=== PATIENT | male | born 1970 | race Caucasian/White ===

== ENCOUNTER 2020-06-16 02:49 | Inpatient (IN) | payer MEDICARE, OTHER ==
[~2020-06-16] VITALS: Ht 177.8 cm; Wt 149.7 kg
[2020-06-16 03:19] LABS: RED BLOOD COUNT 4.66 M/UL (4.20-5.50); WHITE BLOOD COUNT 18.7 K/UL (4.5-11.0)
[2020-06-16 03:40] LABS: BUN/CREATININE RATIO 18 (0-10)
[2020-06-16] MEDS ORDERED: COREG 3.125M3.125 MG PO (21:28)
[2020-06-16] MEDS ORDERED: K-TAB ER20 MEQ PO (21:29)
[2020-06-16] MEDS ORDERED: NITROGLYCERIN0.4 MG SL (21:30)
[2020-06-16] MEDS ORDERED: ASPIRIN 325MG325 MG PO (21:30)
[2020-06-16 22:36] LABS: HEMOGLOBIN 13.9 gm/dl (14.0-17.5); RED BLOOD COUNT 4.27 M/UL (4.20-5.50); WHITE BLOOD COUNT 15.9 K/UL (4.5-11.0)
[2020-06-16 22:52] LABS: BORDETELLA PARAPERTUSSIS Not Detected (Not Detectd); BORDETELLA PERTUSSIS Not Detected (Not Detectd); CHLAMYDIA PNEUMONIAE Not Detected (Not Detectd); CORONAVIRUS HKU1 Not Detected (Not Detectd); CORONAVIRUS NL63 Not Detected (Not Detectd); CORONAVIRUS OC43 Not Detected (Not Detectd); CORONOAVIRUS 229E Not Detected (Not Detectd); HUMAN METAPNEUMOVIRUS Not Detected (Not Detectd); HUMAN RHINOVIRUS/ENTEROVIRUS Not Detected (Not Detectd); INFLUENZA A Not Detected (Not Detectd); INFLUENZA B Not Detected (Not Detectd); MYCOPLASMA PNEUMONIAE Not Detected (Not Detectd); PARAINFLUENZA VIRUS 1 Not Detected (Not Detectd); PARAINFLUENZA VIRUS 2 Not Detected (Not Detectd); PARAINFLUENZA VIRUS 3 Not Detected (Not Detectd); PARAINFLUENZA VIRUS 4 Not Detected (Not Detectd); RESPIRATORY SYNCYTIAL VIRUS Not Detected (Not Detectd)
[2020-06-16 23:03] LABS: BUN/CREATININE RATIO 33 (0-10)
[2020-06-17 00:07] LABS: SARS-CoV-2 NOT DETECTED (Not Detectd)
--- NOTE | 2020-06-17 04:00 | NUR ---
ORAL CARE OFFERED. PT REFUSED INSIDE OF MOUTH TO BE WASHED OUT. HE ONLY WANTS WATER. ALSO OFFERED TO CLEAN LIPS AND ATTEMPTED.
[2020-06-17 05:32] LABS: ACINETOBACTER BAUMANNII Not Detected (Negative); CANDIDA ALBICANS Not Detected (Negative); CANDIDA KRUSEI Not Detected (Negative); CANDIDA TROPICALIS Not Detected (Negative); ENTEROCOCCUS Not Detected (Negative); ESCHERICHIA COLI Not Detected (Negative); HAEMOPHILUS INFLUENZAE Not Detected (Negative); KLEBSIELLA OXYTOCA Not Detected (Negative); KLEBSIELLA PNEUMONIAE Not Detected (Negative); KPC-CARBAPENEM-RESISTANCE GENE Not Detected (Negative); PROTEUS Not Detected (Negative); PSEUDOMONAS AERUGINOSA Not Detected (Negative); SERRATIA MARCESANS Not Detected (Negative); STAPHYLOCOCCUS AUREUS Not Detected (Negative); STREP AGALACTIAE (GROUP B) Not Detected (Negative); STREP PYOGENES (GROUP A) Not Detected (Negative); STREPTOCOCCUS Not Detected (Negative); mecA (METHICILLIN RESIST GENE Not Detected (Negative); vanA/B (VANCOMYCIN RESIST GENE Not Detected (Negative)
[2020-06-17 06:41] LABS: STAPHYLOCOCCUS DETECTED (Negative)
[2020-06-17] MEDS ORDERED: HYDROCODONE-AC1 EACH PO (14:03)
[2020-06-17] MEDS ORDERED: SENNA S TABLET1 EACH PO (14:03)
[2020-06-17] MEDS ORDERED: NICOTINE PATCH1 EAC1 TD (14:03)
[2020-06-17] MEDS ORDERED: LIPITOR40 MG PO (14:04)
[2020-06-17] MEDS ORDERED: GLUCOPHAGE500 MG PO (21:21)
[2020-06-17] MEDS ORDERED: NEURONTIN600 MG PO (21:28)
[2020-06-17] MEDS ORDERED: BUMETANIDE1 MG PO (21:29)
[2020-06-17] MEDS ORDERED: IPRAT-ALBUT 0.5-3 ML INH (21:32)
[2020-06-17] MEDS ORDERED: VENTOLIN HFA 66.7 GM INH (21:32)
== END 2020-06-18 09:58 | disposition short-term general hospital (02) | DRG 306 ==
LOC: ER1 02:49 → PROG CARE 21:34 → CDU 21:34 → PROG CARE 06-17 00:33
PROVIDERS: Emergency Medicine; Student in an Organized Health Care Education/Training Program; ADMIT Internal Medicine
PROC: 5A09457 Assistance with Respiratory Ventilation, 24-96 Consecutive Hours, Continuous Positive Airway Pressure (ICD-10-PCS; principal; 2020-06-16)
DX: I35.0 Nonrheumatic aortic (valve) stenosis (principal); J96.22 Acute and chronic respiratory failure with hypercapnia; J96.21 Acute and chronic respiratory failure with hypoxia; J81.1 Chronic pulmonary edema; Z68.42 Body mass index [BMI] 45.0-49.9, adult; J44.1 Chronic obstructive pulmonary disease with (acute) exacerbation; I50.9 Heart failure, unspecified; I11.0 Hypertensive heart disease with heart failure; E66.2 Morbid (severe) obesity with alveolar hypoventilation; Z20.822 Contact with and (suspected) exposure to COVID-19; E11.9 Type 2 diabetes mellitus without complications; R77.8 Other specified abnormalities of plasma proteins; I10 Essential (primary) hypertension; E78.5 Hyperlipidemia, unspecified; Z87.891 Personal history of nicotine dependence; Z95.2 Presence of prosthetic heart valve; Z79.84 Long term (current) use of oral hypoglycemic drugs; Z79.82 Long term (current) use of aspirin; Z79.899 Other long term (current) drug therapy; Z99.81 Dependence on supplemental oxygen; Z89.429 Acquired absence of other toe(s), unspecified side
CPT/HCPCS: 36415; 36600; 71045; 80053; 80202; 82550; 82553; 82803; 82962; 83605; 83735; 83880; 84100; 84484; 85025; 87040; 87077; 87081; 87150; 87186; 87633; 93005; 94640; 94660; 94664; 94760; 96365; 96366; 96367; 96368; 96372; 96375; 96376; 99285; A6212; J0456; J0692; J0696; J1205; J1650; J1940; J2060; J2270; J3370; J3475; J7070; U0002